=== PATIENT | male | born 1975 | race Caucasian/White ===

== ENCOUNTER 2017-12-13 13:58 | Emergency (ER) | payer BC ==
[~2017-12-13] VITALS: Ht 172.7 cm; Wt 99.7 kg
[~2017-12-13 13:58] MED LIST: CIPRO500 MG PO; DILAUDID2 MG PO; NAPROSYN500 MG PO; NOHOMEMEDS; NORCO 5/3251 TABLET PO; PERCOCET 5/31 TABLET PO; VALIUM5 MG PO
[2017-12-13 14:26] LABS: HEMATOCRIT 46.9 % (38.0-50.0); HEMOGLOBIN 16.2 G/DL (12.5-16.6); MCH 30.7 PG (29.0-34.0); MCHC 34.5 G/DL (30.0-36.0); PLATELET COUNT 221 K/uL (156-360); RBC DIS.WIDTH-CV 12.6 % (11.8-14.6); RBC DIS.WIDTH-SD 41.3 % (39-53); RED BLOOD COUNT 5.27 M/uL (4.00-5.50); WHITE BLOOD COUNT 10.4 K/uL (4.1-10.2)
[2017-12-13 14:35] LABS: CHLORIDE 102 mEq/L (99-109); POTASSIUM 3.8 mEq/L (3.7-5.4); SODIUM 138 mEq/L (136-147)
[2017-12-13 14:36] LABS: GLUCOSE 151 mg/dL (70-99)
[2017-12-13 14:40] LABS: CREATININE 1.1 mg/dL (0.6-1.3); GFR ESTIMATE (CALCULATED) > 59 mL/min/ (58.99-99999)
[2017-12-13 14:41] LABS: UREA NITROGEN (BUN) 10 mg/dL (9-23)
[2017-12-13 14:47] LABS: TROP-I INTERPRETATION NEGATIVE; TROPONIN-I < 0.01 ng/mL (0.0-0.30)
[2017-12-13] MEDS ORDERED: NAPROXEN500 MG PO (15:52)
[2017-12-13] MEDS ORDERED: ATARAX,VISTARIL50 MG PO (15:52)
[2017-12-13 16:20] VITALS: BP 140/94
== END 2017-12-13 16:20 | disposition home or self-care (01) ==
LOC: EME 13:58
DX: R07.9 Chest pain, unspecified (principal); F41.9 Anxiety disorder, unspecified; G47.00 Insomnia, unspecified
CPT/HCPCS: 71046; 80048; 84484; 85027; 93005; 99281; 99283